=== PATIENT | female | born 1970 | race African-American/Black ===

== ENCOUNTER 2017-04-17 14:34 | Emergency (ER) | payer MEDICAID ==
[~2017-04-17] VITALS: Ht 172.7 cm; Wt 77.0 kg
[~2017-04-17 14:34] MED LIST: CARB200T PO; DIPH25TA23 PO; ESCI5SOL2 PO; KEPP500 PO; PHEN100C4 PO
[2017-04-17] MEDS ORDERED: LORAZEPAM 2MG/ML CPJ IV ONE (15:30)
[2017-04-17] MEDS ORDERED: LEVETIRACETAM 500MG PREMIX 100 ML IV ONE (15:30)
[2017-04-17 15:34] LABS: BASOPHILS % 0.5 % (0.0-2.0); CHLORIDE 104 mEq/L (98-107); EOSINOPHILS % 0.5 % (0.0-5.0); HEMATOCRIT. 34.8 % (36.0-48.0); HEMOGLOBIN. 11.6 g/dL (12.0-16.0); LYMPHOCYTES % 25.4 % (20.0-50.0); MEAN CORPUSCULAR HEMOGLOBIN 27.5 pg (28.0-32.0); MEAN CORPUSCULAR VOLUME 82.3 fL (81.0-99.0); MONOCYTES % 10.7 % (2.0-8.0); NEUTROPHILS % 62.9 % (40.0-76.0); PLATELET 190 x1000/uL (130-400); RED BLOOD CELL COUNT 4.23 mill/uL (4.2-5.4); RED CELL DISTRIBUTION WIDTH 13.2 % (11.6-14.6)
[2017-04-17 15:37] LABS: INR 1.1; PROTHROMBIN TIME 11.4 sec
[2017-04-17 15:45] LABS: CARBON DIOXIDE 30 mEq/L (21-32); ETHANOL BLOOD < 10 mg/dL; PHENYTOIN 1.7 ug/mL (10-20); TROPONIN I < 0.02 ng/mL (0.00-0.04)
[2017-04-17 17:32] LABS: CLARITY URINE CLEAR (CLEAR); COLOR URINE YELLOW (YELLOW); GLUCOSE URINE NEGATIVE (NEGATIVE); KETONES URINE NEGATIVE (NEGATIVE); LEUKOCYTE ESTERASE URINE NEGATIVE (NEGATIVE); NITRITE URINE NEGATIVE (NEGATIVE); OCCULT BLOOD URINE NEGATIVE (NEGATIVE); PROTEIN URINE NEGATIVE (NEGATIVE); SPECIFIC GRAVITY URINE 1.013 (1.005-1.030)
[2017-04-17 17:50] LABS: *AMPHETAMINES SCREEN URINE NEGATIVE (NEGATIVE); *BARBITURATES SCREEN URINE NEGATIVE (NEGATIVE); *COCAINE SCREEN URINE NEGATIVE (NEGATIVE); CANNABINOID URINE SCREEN NEGATIVE (NEGATIVE); METHADONE URINE SCREEN NEGATIVE (NEGATIVE); OPIATES URINE SCREEN NEGATIVE (NEGATIVE); PHENCYCLIDINE URINE SCREEN NEGATIVE (NEGATIVE)
[2017-04-17 18:04] LABS: *BENZODIAZEPINES SCREEN URINE PRESUMTIVE POSITIVE (NEGATIVE)
[2017-04-17] MEDS ORDERED: PHENYTOIN SODIUM 1,000 MG in SODIUM CHLORIDE 0.9% 100 ML IV ONE (18:15)
[2017-04-17 20:37] VITALS: BP 131/84
== END 2017-04-17 20:39 | disposition home or self-care (01) ==
LOC: ER 14:55
DX: G40.909 Epilepsy, unspecified, not intractable, without status epilepticus (principal); R07.9 Chest pain, unspecified
CPT/HCPCS: 36415; 70450; 80053; 80185; 80305; 81003; 84484; 85025; 85610; 93005; 96365; 96366; 96367; 96375; 99285; G0482; J1165; J1953; J2060; Z7610; J7050

== ENCOUNTER 2017-06-01 17:55 | Emergency (ER) | payer MEDICAID, OTHER ==
[~2017-06-01] VITALS: Ht 167.6 cm; Wt 65.0 kg
[2017-06-01 19:00] LABS: BASOPHILS % 0.3 % (0.0-2.0); EOSINOPHILS % 0.4 % (0.0-5.0); HEMATOCRIT. 37.8 % (36.0-48.0); LYMPHOCYTES % 21.5 % (20.0-50.0); MEAN CORPUSCULAR HEMOGLOBIN 28.7 pg (28.0-32.0); MEAN CORPUSCULAR VOLUME 83.7 fL (81.0-99.0); MEAN PLATELET VOLUME 8.6 fl (7.4-10.4); MONOCYTES % 11.9 % (2.0-8.0); NEUTROPHILS % 65.9 % (40.0-76.0); PLATELET 148 x1000/uL (130-400); RED BLOOD CELL COUNT 4.52 mill/uL (4.2-5.4); RED CELL DISTRIBUTION WIDTH 14.1 % (11.6-14.6)
[2017-06-01 19:02] LABS: CHLORIDE 109 mEq/L (98-107)
[2017-06-01 19:05] LABS: CARBON DIOXIDE 30 mEq/L (21-32)
[2017-06-01 19:06] LABS: HCG SCREEN NEGATIVE
[2017-06-01 19:09] LABS: INR 1.1
[2017-06-01 19:16] LABS: CARBAMAZEPINE 1.2 ug/mL (4-12)
[2017-06-01] MEDS ORDERED: CARBAMAZEPINE 100MG TABLET CHEW PO ONE (19:30)
[2017-06-01] MEDS ORDERED: PHENYTOIN SODIUM EXTENDED 100MG CAPSULE PO ONE (19:30)
[2017-06-01] MEDS ORDERED: PROCHLORPERAZINE 10MG/2ML VIAL IV STA (20:47)
[2017-06-01] MEDS ORDERED: LEVETIRACETAM 500MG TABLET PO ONE (21:00)
[2017-06-02] MEDS ORDERED: LEVETIRACETAM 500MG TABLET ONE (08:14)
[2017-06-02 13:40] VITALS: BP 129/94
== END 2017-06-02 14:08 | disposition home or self-care (01) ==
LOC: ER 18:12
DX: G40.909 Epilepsy, unspecified, not intractable, without status epilepticus (principal); R51 Headache; R45.851 Suicidal ideations; F43.0 Acute stress reaction; Z63.4 Disappearance and death of family member; R03.0 Elevated blood-pressure reading, without diagnosis of hypertension; R20.0 Anesthesia of skin
CPT/HCPCS: 36415; 70450; 80053; 80156; 80185; 83605; 84703; 85025; 85610; 87040; 96374; 99285; J0780; Z7610

== ENCOUNTER 2018-10-12 18:27 | Emergency (ER) | payer MEDICAID ==
[~2018-10-12] VITALS: Ht 160 cm; Wt 75.0 kg
[~2018-10-12 18:27] MED LIST changes: -CARB200T PO; -KEPP500 PO; -PHEN100C4 PO
[2018-10-12] MEDS ORDERED: SODIUM CHLORIDE 0.9% 1,000 ML IV ONE (20:29)
[2018-10-12] MEDS ORDERED: LEVETIRACETAM 1000MG/100ML 100 ML IV ONE (20:30)
[2018-10-13 00:51] VITALS: BP 130/86
== END 2018-10-13 00:54 | disposition home or self-care (01) ==
LOC: ER 18:27
DX: G40.909 Epilepsy, unspecified, not intractable, without status epilepticus (principal); R51 Headache; I10 Essential (primary) hypertension; Z88.6 Allergy status to analgesic agent
CPT/HCPCS: 96365; 99283; C1893; J1953; J7030; Z7610

== ENCOUNTER 2023-05-19 21:53 | Emergency (ER) | payer MEDICAID ==
[~2023-05-19] VITALS: Ht 160 cm; Wt 79.8 kg
[2023-05-19 22:05] VITALS: TEMP 98.2; O2SAT 100
[2023-05-19 22:37] LABS: CLARITY URINE CLOUDY (CLEAR); COLOR URINE YELLOW (YELLOW); GLUCOSE URINE NEGATIVE (NEGATIVE); KETONES URINE TRACE (NEGATIVE); LEUKOCYTE ESTERASE URINE 3+ (NEGATIVE); NITRITE URINE NEGATIVE (NEGATIVE); OCCULT BLOOD URINE NEGATIVE (NEGATIVE); PROTEIN URINE 1+ (NEGATIVE); SPECIFIC GRAVITY URINE 1.022 (1.005-1.030)
[2023-05-19 22:58] LABS: WBC URINE 25-50 /hpf (0-2)
[2023-05-19 22:59] LABS: BACTERIA URINE 3+; RBC URINE 0-2 /hpf (0-2); SQUAMOUS EPITHELIAL CELL URINE 1+ /lpf (RARE/1+)
[2023-05-19 23:01] LABS: BASOPHILS % 0.3 % (0.0-2.0); EOSINOPHILS % 1.8 % (0.0-5.0); HEMOGLOBIN. 12.1 g/dL (12.0-16.0); LYMPHOCYTES % 31.5 % (20.0-50.0); MEAN CORPUSCULAR HEMOGLOBIN 27.4 pg (28.0-32.0); MEAN CORPUSCULAR HGB CONC 32.7 g/dL (31.0-37.0); MEAN CORPUSCULAR VOLUME 83.9 fL (81.0-99.0); MEAN PLATELET VOLUME 9.1 fl (7.4-10.4); MONOCYTES % 7.6 % (2.0-8.0); NEUTROPHILS % 58.8 % (40.0-76.0); PLATELET 196 x1000/uL (130-400); RED CELL DISTRIBUTION WIDTH 14.6 % (11.6-14.6); WHITE BLOOD COUNT 5.3 x1000/uL (4.5-11.0)
[2023-05-19 23:08] LABS: CHLORIDE 112 mEq/L (98-107); INDEX HEMOLYSI 1 (1-3); INDEX ICTERIC 1 (1-4); INDEX LIPEMIC 1 (1-3); POTASSIUM 3.1 mEq/L (3.5-5.1); SODIUM 143 mEq/L (136-145)
[2023-05-19 23:17] LABS: ALANINE AMINOTRANSFERASE 18 IU/L (13-61); ALBUMIN 3.2 g/dL (3.4-5.0); ASPARTATE AMINOTRANSFERASE 11 IU/L (15-37); BILIRUBIN TOTAL 0.3 mg/dL (0.1-1.0); CALCIUM 8.7 mg/dL (8.5-10.1); CARBON DIOXIDE 29 mEq/L (21-32); CREATININE 0.6 mg/dL (0.6-1.3); GLUCOSE 95 mg/dL (70-105); PROTEIN TOTAL 7.7 g/dL (6.0-8.3); TROPONIN I HIGH SENSITIVITY 7 ng/L (<54); UREA NITROGEN BLOOD 9 mg/dL (7-21)
[2023-05-20] MEDS ORDERED: HYDROCODONE/ACETAMINOPHEN 5/325MG TABLET PO ONE (03:30)
[2023-05-20] MEDS ORDERED: ONDANSETRON 4MG ODT PO ONE (03:30)
[2023-05-20 04:45] VITALS: BP 129/76; PULSE 53; RESP 16
[2023-05-20] MEDS ORDERED: LEVOFLOXACIN 500MG TABLET PO ONE (05:30)
[2023-05-20] MEDS ORDERED: PROM25TA13 MT (05:48)
[2023-05-20] MEDS ORDERED: TOPUD MT (05:48)
[2023-05-20] MEDS ORDERED: IBUP-1525 MT (05:48)
[2023-05-20] MEDS ORDERED: CIPR-263 MT (05:48)
== END 2023-05-20 06:10 | disposition home or self-care (01) ==
LOC: ER 21:53
DX: R51.9 Headache, unspecified (principal); I10 Essential (primary) hypertension
CPT/HCPCS: 80053; 81003; 81025; 83690; 85025; 87086; 84484; 36415; 93005; 99284; 70450; Z7610 ×2

== ENCOUNTER 2023-12-10 22:10 | Emergency (ER) | payer MEDICAID, OTHER ==
[~2023-12-10] VITALS: Ht 375.9 cm; Wt 85.0 kg
[~2023-12-10 22:10] MED LIST changes: +CIPR-263 MT; +IBUP-1525 MT; +PROM25TA13 MT; +TOPUD MT
[2023-12-10 22:18] VITALS: O2SAT 100
[2023-12-10] MEDS: ACETAMINOPHEN 325MG TABLET PO ONE (23:38)
[2023-12-10] MEDS ORDERED: NAPR-1176 MT (23:45)
[2023-12-10 23:53] VITALS: BP 117/70; PULSE 80; RESP 15; TEMP 98.7
== END 2023-12-10 23:57 | disposition home or self-care (01) ==
LOC: ER 22:10
DX: M25.562 Pain in left knee (principal); E78.00 Pure hypercholesterolemia, unspecified; Z88.0 Allergy status to penicillin
CPT/HCPCS: 73562; 99283

== ENCOUNTER 2024-10-25 17:27 | Emergency (ER) | payer OTHER ==
[~2024-10-25] VITALS: Ht 172.7 cm; Wt 90.0 kg
[~2024-10-25 17:27] MED LIST changes: +NAPR-1176 MT
[2024-10-25 17:29] VITALS: BP 165/88; PULSE 98; RESP 18; TEMP 36.9; O2SAT 100
[2024-10-25 21:00] LABS: CLARITY URINE CLOUDY (CLEAR); COLOR URINE YELLOW (YELLOW); GLUCOSE URINE NEGATIVE (NEGATIVE); KETONES URINE 3+ (NEGATIVE); LEUKOCYTE ESTERASE URINE 3+ (NEGATIVE); NITRITE URINE NEGATIVE (NEGATIVE); OCCULT BLOOD URINE NEGATIVE (NEGATIVE); PROTEIN URINE 1+ (NEGATIVE); SPECIFIC GRAVITY URINE 1.016 (1.005-1.030)
[2024-10-25 21:25] LABS: BACTERIA URINE 2+; RBC URINE 0-2 /hpf (0-2); SQUAMOUS EPITHELIAL CELL URINE 1+ /lpf (RARE/1+)
== END 2024-10-25 22:01 | disposition left against medical advice (07) ==
LOC: ER 17:27
DX: R10.84 Generalized abdominal pain (principal); I10 Essential (primary) hypertension; Z53.21 Procedure and treatment not carried out due to patient leaving prior to being seen by health care provider
CPT/HCPCS: 81003